=== PATIENT | female | born 1995 | race Caucasian/White ===

== ENCOUNTER 2016-04-15 13:29 | Emergency (ER) | payer BC ==
[2016-04-15 13:35] VITALS: RESP 16
--- NOTE | 2016-04-15 13:51 | EDPHY ---
H & P Time Seen by Provider: 04/15/16 13:33 HPI/ROS: CHIEF COMPLAINT: allergic reaction HISTORY OF PRESENT ILLNESS: The patient is a 20-year-old female who presents to the emergency department after having allergic reaction at approximately 12: 40 p.m. The patient has a known allergy to nuts. She was accidentally exposed to sunflower seeds in bread. She developed some itching around her eyes. She developed itching and tightness in her throat. She took her EpiPen. EMS arrived. They treated her with Benadryl. The patient has no symptoms currently. She denies any swelling or discomfort in her throat. No eye discomfort or visual change. No chest pain or shortness of breath. REVIEW OF SYSTEMS: My complete review of systems is negative except as mentioned in the HPI. Past Medical/Surgical History: Allergic reaction, mononucleosis, high LFTs Past surgical history: Negative Social history: The patient is a student at [employer]. She does not smoke. Smoking Status: Never smoked Physical Exam: Vitals noted GENERAL: Well-appearing, in no acute distress, alert. HEENT: Eyes normal to inspection, no signs of dehydration. Pharynx is normal. No uvular swelling. Midline. No facial swelling. NECK: No thyromegaly, no lymphadenopathy, supple. No stridor RESPIRATORY: Clear to auscultation bilaterally, no rales, rhonchi or wheezing. CVS: Regular rate and rhythm, no rubs, murmurs, or gallops. ABDOMEN: Soft, nontender, nondistended, no organomegaly. BACK: Normal to inspection, no CVA tenderness. SKIN: Normal color, no rash, warm, dry. No pallor. EXTREMITIES: No pedal edema, no calf tenderness, no joint or hand swelling. NEURO/PSYCH: Alert and oriented, normal mood and affect. Constitutional: Initial Vital Signs Temperature (C) 36.7 C 04/15/16 13:32 Heart Rate 106 H 04/15/16 13:32 Respiratory Rate 16 04/15/16 13:32 Blood Pressure 140/77 H 04/15/16 13:32 O2 Sat (%) 97 04/15/16 13:32 O2 Delivery Mode Room Air Allergies/Adverse Reactions: Sulfa (Sulfonamide Antibiotics) Allergy (Verified 11/26/15 13:31) sunflower seed Allergy (Verified 11/26/15 13:30) Home Medications: Medication Instructions Recorded Diphenhydramine HCl [Benadryl] 25 mg PO TID #9 capsule 11/26/15 EPINEPHRINE 11/26/15 Ranitidine HCl [Zantac] 150 mg PO DAILY #3 tablet 11/26/15 Medical Decision Making ED Course/Re-evaluation: In the emergency department I discussed possible etiologies with the patient. She is well at this time. She will be observed and recheck. Patient comfortable with this plan. I do not feel she needs steroids at this point. I rechecked the patient on numerous occasions. She was stable throughout her stay. At time of discharge patient was doing well. She had no complaints. She had no facial swelling. No wheezing or stridor. No signs respiratory distress. The patient will return with worsening symptoms. She was given warnings prior to leaving. Differential Diagnosis: My differential includes but is not limited to allergic reaction, anaphylaxis, nut allergy, anxiety Departure - Departure Disposition: Home, Routine, Self-Care Clinical Impression: Allergic reaction Qualifiers: Encounter type: initial encounter Qualifier Code: (T78.40XA) Allergy, unspecified, initial encounter Condition: Good Instructions: Allergies (ED) Additional Instructions: Return with increasing shortness of breath, throat swelling, significant rash or any other concerns. Referrals: [facility] [Outside] - 5-7 days, call for appt.
[2016-04-15 14:50] VITALS: BP 125/81; PULSE 78; O2SAT 98
[2016-04-15 14:52] VITALS: TEMP 97.5
== END 2016-04-15 14:52 | disposition home or self-care (01) ==
LOC: EDUNIT#
DX: T78.1XXA Other adverse food reactions, not elsewhere classified, initial encounter (principal)

== ENCOUNTER → 2016-07-06 | Outpatient (CLI) | payer BC | LOC: BMCIMAGING 12:09 | PROVIDERS: ATTEND Physician Assistant | DX: M25.562 Pain in left knee (principal); Y93.23 Activity, snow (alpine) (downhill) skiing, snowboarding, sledding, tobogganing and snow tubing; V00.321A Fall from snow-skis, initial encounter ==

== ENCOUNTER 2016-08-01 04:45 | Emergency (ER) | payer BC ==
[2016-08-01 04:58] VITALS: BP 121/79; PULSE 90; RESP 16; TEMP 97.7; O2SAT 98
--- NOTE | 2016-08-01 05:12 | EDPHY ---
H & P Stated Complaint: left arm/hand tingling, L knee swollen "blue", has ACL tear Time Seen by Provider: 08/01/16 05:00 HPI/ROS: Chief Complaint: Left leg bumps, left arm tingling HPI: 89-year-old female who recently had a left ACL tear noticed earlier this morning some bumps on the lateral aspect of her left knee. She also woke up this morning with some numbness in her left hand. Also has sensation of the some fullness in her throat. No difficulty breathing or swallowing. No fevers or chills. Patient has been wearing a knee brace over her left knee. Does been no numbness or tingling in her lower extremity. No pain below her knee. There is no new pain. No fevers or chills. No cough. No chest pain or shortness of breath. ROS: 10 point Review of Systems is negative except as noted in the HPI. PMH: Left ACL tear, mononucleosis, allergic reaction, elevated LFTs Social History: No smoking, no alcohol, no recreational drug use Family History: non-contributory Physical Exam: Gen: Awake, Alert, No Distress HEENT: Nose: no rhinorrhea Eyes: PERRLA, EOMI Mouth: Moist mucosa normal oropharynx Neck: Supple, no JVD Chest: nontender, lungs clear to auscultation Heart: S1, S2 normal, no murmur Abd: Soft, non-tender, no guarding Back: no CVA tenderness, no midline tenderness Ext: no edema, non-tender, she has multiple small ingrown hairs along the lateral aspect of her left knee without any significant erythema. There is no discoloration. She has normal perfusion. She has 2+ DP PT pulses. Cap refills less than 2 seconds. Skin: no rash Neuro: CN II-XII intact, Sensation grossly intact, Strength 5/5 in bilateral upper and lower extremities, sensations intact in the radial, median and ulnar nerve distribution of her left arm. She has full flexion extension strength of her elbow and wrist. - Personal History Current Tetanus/Diphtheria Vaccine: Unsure Current Tetanus Diphtheria and Acellular Pertussis (TDAP): Unsure - Medical/Surgical History Hx Asthma: No Hx Chronic Respiratory Disease: No Hx Diabetes: No Hx Cardiac Disease: No Hx Renal Disease: No Hx Cirrhosis: No Hx Alcoholism: No Hx HIV/AIDS: No Hx Splenectomy or Spleen Trauma: No Other PMH: allergic rx, mono, L ACL tear - Social History Smoking Status: Never smoked Constitutional: Initial Vital Signs Temperature (C) 36.5 C 08/01/16 04:49 Heart Rate 90 08/01/16 04:49 Respiratory Rate 16 08/01/16 04:49 Blood Pressure 121/79 H 08/01/16 04:49 O2 Sat (%) 98 08/01/16 04:49 O2 Delivery Mode Room Air Allergies/Adverse Reactions: Sulfa (Sulfonamide Antibiotics) Allergy (Verified 11/26/15 13:31) sunflower seed Allergy (Verified 11/26/15 13:30) Home Medications: Medication Instructions Recorded NK [No Known Home Meds] 08/01/16 Medical Decision Making ED Course/Re-evaluation: 20-year-old presenting with multiple medical complaints including a rash on her knee some numbness in her left arm and fullness in her throat. Her throat looks fine. She has normal neurologic exam leftover extremity I think her numbness is likely secondary to how she was sleeping on it this morning. Her left knee she has multiple ingrown hairs which developed because she has been wearing a knee brace while her hair grows in from being shaved. There is no cellulitis or other signs of concerning infection or ischemia. Departure - Departure Disposition: Home, Routine, Self-Care Clinical Impression: Ingrown hair Condition: Good Instructions: Acute Rash (ED) Additional Instructions: Follow up with primary care physician in 3-4 days for re-evaluation. Referrals: Samira Hilario MD [Primary Care Provider] - As per Instructions
== END 2016-08-01 05:25 | disposition home or self-care (01) ==
DX: L73.1 Pseudofolliculitis barbae (principal)